=== PATIENT | male | born 1985 | race Caucasian/White ===

== ENCOUNTER 2016-10-23 22:55 | Emergency (ER) | payer BC ==
[~2016-10-23 22:55] MED LIST: ALLEGRA60 MG PO; BENZONATATE PO; BENZONATATE200 M1 PO; DOXYCYCLINE HY100 M3 PO; MOTRIN600 M2 PO; NO MEDICATIONS; PHENERGAN DM1 ML PO; TESSALON200 MG PO; VOLTAREN75 MG PO; ZITHROMAX PO; ZITHROMAX1 G/PKT PO
[2016-10-23] MEDS ORDERED: DELTASONE20 MG PO (23:44)
== END 2016-10-23 23:44 | disposition home or self-care (01) ==
LOC: SED 22:55
DX: J02.9 Acute pharyngitis, unspecified (principal); F17.210 Nicotine dependence, cigarettes, uncomplicated
CPT/HCPCS: 87651; 99283

== ENCOUNTER 2016-10-29 21:19 | Emergency (ER) | payer BC ==
[~2016-10-29 21:19] MED LIST changes: +DELTASONE20 MG PO
== END 2016-10-29 21:37 | disposition home or self-care (01) ==
LOC: SED 21:19
DX: J20.9 Acute bronchitis, unspecified (principal); J06.9 Acute upper respiratory infection, unspecified; F17.210 Nicotine dependence, cigarettes, uncomplicated; Z88.5 Allergy status to narcotic agent
CPT/HCPCS: 99282

== ENCOUNTER 2017-02-03 09:46 | Emergency (ER) | payer BC | END 2017-02-03 11:20 | disposition home or self-care (01) | LOC: SED 09:46 | DX: J03.00 Acute streptococcal tonsillitis, unspecified (principal); Z88.6 Allergy status to analgesic agent | CPT/HCPCS: 87880; 96372; 99283; J0561 ==

== ENCOUNTER 2017-03-07 08:12 | Emergency (ER) | payer BC | END 2017-03-07 09:00 | disposition home or self-care (01) | LOC: SED 08:12 | DX: J02.9 Acute pharyngitis, unspecified (principal); J06.9 Acute upper respiratory infection, unspecified; F17.200 Nicotine dependence, unspecified, uncomplicated; Z88.6 Allergy status to analgesic agent | CPT/HCPCS: 87651; 99283 ==